=== PATIENT | female | born 1980 | race African-American/Black ===

== ENCOUNTER 2025-03-15 08:41 | Outpatient (CLI) | payer OTHER ==
[2025-03-15] MEDS ORDERED: Iopamidol 300 61% 100 ML VIAL FS ONE (10:06)
== END 2025-03-15 08:42 | disposition home or self-care (01) ==
LOC: CSHCT 08:41
PROVIDERS: ATTEND Surgery
DX: N63.20 Unspecified lump in the left breast, unspecified quadrant (principal); R59.0 Localized enlarged lymph nodes
CPT/HCPCS: 71260; 74177; Q9967

== ENCOUNTER 2025-03-24 12:01 | Outpatient (CLI) | payer OTHER | END 2025-03-24 12:02 | disposition home or self-care (01) | LOC: CSHULT 12:01 | PROVIDERS: ATTEND Internal Medicine Hematology & Oncology | DX: C50.412 Malignant neoplasm of upper-outer quadrant of left female breast (principal) | CPT/HCPCS: 93306 ==

== ENCOUNTER 2025-03-29 10:26 | Outpatient (CLI) | payer OTHER | END 2025-03-29 10:27 | disposition home or self-care (01) | LOC: CSHCT 10:26 | PROVIDERS: ATTEND Radiology Radiation Oncology | DX: C50.812 Malignant neoplasm of overlapping sites of left female breast (principal); N63.20 Unspecified lump in the left breast, unspecified quadrant | CPT/HCPCS: 70491 ==